=== PATIENT | male | born 1955 | race Caucasian/White ===

== ENCOUNTER 2018-04-10 18:58 | Emergency (ER) | payer MEDICAID ==
--- NOTE | 2018-04-10 19:24 | EDPHY ---
H & P Stated Complaint: Homeless and cold and hasn't slept in 40hrs Time Seen by Provider: 04/10/18 19:13 HPI/ROS: CHIEF COMPLAINT: Concerned about TB HISTORY OF PRESENT ILLNESS: 62-year-old male presents with a concern about tuberculosis. He went to the homeless long-term this evening and they asked for him to have a PPD placed. He noticed that multiple people were coughing in the long-term and became concerned that he was being exposed to tuberculosis if he entered the long-term. He left the long-term and became quite worried about exposure to tuberculosis. No cough, hemoptysis or fever. REVIEW OF SYSTEMS: complete 10 point ROS reviewed and is negative except for the noted elements in the HPI - Personal History Current Tetanus/Diphtheria Vaccine: Yes Current Tetanus Diphtheria and Acellular Pertussis (TDAP): Yes - Medical/Surgical History Hx Asthma: No Hx Chronic Respiratory Disease: No Hx Diabetes: No Hx Cardiac Disease: No Hx Renal Disease: No Hx Cirrhosis: No Hx Alcoholism: No Hx HIV/AIDS: No Hx Splenectomy or Spleen Trauma: No Other PMH: appy, tonsillectomy, cancer on nose removed - Social History Smoking Status: Current some day smoker Alcohol Use: Sober Drug Use: None - Physical Exam Exam: General Appearance: Alert, pleasant, talkative Eyes: Pupils equal and round, no conjunctival pallor or injection ENT, Mouth: Mucous membranes moist Neck: Normal inspection Respiratory: Lungs are clear to auscultation, no wheezing Cardiovascular: Regular rate and rhythm Gastrointestinal: Abdomen is soft and nontender Neurological: A&O, nonfocal, normal gait Skin: Warm and dry, no rash Extremities: Normal inspection Psychiatric: Tangential thought process, mild paranoia Constitutional: Initial Vital Signs Temperature (C) 37.3 C 04/10/18 19:07 Heart Rate 85 04/10/18 19:07 Respiratory Rate 16 04/10/18 19:07 Blood Pressure 160/94 H 04/10/18 19:07 O2 Sat (%) 98 04/10/18 19:07 O2 Delivery Mode Room Air Allergies/Adverse Reactions: No Known Allergies Allergy (Unverified 04/10/18 19:09) Home Medications: Medication Instructions Recorded NK [No Known Home Meds] 04/10/18 Medical Decision Making - Diagnostics EKG Interpretation: EKG interpreted by me reveals normal sinus rhythm, rate 73, early repolarization , borderline prolonged QT interval. Interpretation: Borderline EKG. Imaging Results: CXR: NAD Imaging: I viewed and interpreted images myself ED Course/Re-evaluation: This pt presents with tangential thought process and paranoia. He is not suicidal or homocidal and does not meet criteria for MH hold. I suspect this is his baseline mental status. I tried to reassure him about the safety of the long-term. However, he remains concerned and will continue to sleep outside. Informed about [facility] walk-in clinic. In regards to his presenting complaint, he denied chest pain and respiratory sx during my evaluation. Differential Diagnosis: includes though not limited to acute psychosis, overdose, suicidal ideation, acute cardiopulm disease - Data Points Laboratory Results: Laboratory Results 04/10/18 19:15 04/10/18 19:15 Point of Care Test Results: Chemistry 04/10/18 19:17 POC Troponin I 0.02 ng/mL ng/mL (0.00-0.08) Departure - Departure Disposition: Home, Routine, Self-Care Clinical Impression: Concern about pulmonary tuberculosis without diagnosis Condition: Good Instructions: Additional Information Additional Instructions: Return with any concerns. The [facility] has walk-in appointments for the homeless at the following days/locations. No appointment is needed. Monday 8-10 am @ [facility] 11 AM-1 PM @ [facility] Monday 8-10:30 AM @ [facility] Monday 8-10 AM @ [facility] 2-4 PM @ [facility] Monday 8-10 AM @ [facility] Referrals: [facility],. [Clinic] - As per Instructions
[2018-04-10 19:28] LABS: PLATELET COUNT 354 10^3/uL (150-400)
--- NOTE | 2018-04-10 19:36 | CPEKG ---
Test Reason : OPEN Blood Pressure : / mmHG Vent. Rate : 073 BPM Atrial Rate : 073 BPM P-R Int : 148 ms QRS Dur : 114 ms QT Int : 437 ms P-R-T Axes : 061 -10 039 degrees QTc Int : 482 ms Sinus rhythm Minimal ST elevation, anterior leads Borderline prolonged QT interval Confirmed by Abi Balderas ([id number]) on 04/10/2018 7:36:16 PM Referred By: Confirmed By:Abi Balderas
[2018-04-10 20:07] VITALS: BP 145/92
== END 2018-04-10 20:07 | disposition home or self-care (01) ==
DX: Z03.89 Encounter for observation for other suspected diseases and conditions ruled out (principal); F17.200 Nicotine dependence, unspecified, uncomplicated; Z59.0 Homelessness
CPT/HCPCS: 84484-PO

== ENCOUNTER 2018-08-21 20:34 | Emergency (ER) | payer MEDICAID ==
--- NOTE | 2018-08-21 21:07 | EDPHY ---
H & P Smoking Status: Current some day smoker Time Seen by Provider: 08/21/18 20:47 HPI/ROS: CHIEF COMPLAINT: "I do not want to live" HISTORY OF PRESENT ILLNESS: The patient is a 62-year-old male who is homeless. He states that he no longer wants to live. He is tired of being on the street. "I am just done." Patient states that his plan is to not eat or drink anything." I will meet my maker in 7 days, peacefully, like a gentleman." Patient denies any recent illness or trauma. Patient states currently taking medication for a toe fungus. REVIEW OF SYSTEMS: 10 systems were reveiwed and are negative with the exception of the elements mentioned in the history of present illness. (Angie Guerrero) Past Medical/Surgical History: Includes appendectomy, tonsillectomy, skin cancer Social history: The patient is homeless. He smokes cigarettes. Positive THC. Denies alcohol. (Angie Guerrero) Physical Exam: Vitals noted GENERAL: Well-appearing, in no acute distress, alert. HEENT: Eyes normal to inspection, normal pharynx, no signs of dehydration. NECK: Normal, supple. RESPIRATORY: Clear to auscultation bilaterally, no rales, rhonchi or wheezing. CVS: Regular rate and rhythm, no rubs, murmurs, or gallops. ABDOMEN: Soft, nontender, nondistended, no organomegaly. BACK: Normal to inspection, no CVA tenderness. SKIN: Normal color, no rash, warm, dry. No pallor. EXTREMITIES: No pedal edema, no calf tenderness, no Homans sign or cords, no joint swelling. NEURO/PSYCH: Alert and oriented, normal mood and affect, normal motor sensory exam. No obvious cranial nerve deficit. (Angie Guerrero) Constitutional: Initial Vital Signs Temperature (C) 36.9 C 08/21/18 20:40 Heart Rate 81 08/21/18 20:40 Respiratory Rate 20 08/21/18 20:40 Blood Pressure 149/80 H 08/21/18 20:40 O2 Sat (%) 94 08/21/18 20:40 O2 Delivery Mode Room Air Allergies/Adverse Reactions: No Known Allergies Allergy (Unverified 08/21/18 20:39) Home Medications: Medication Instructions Recorded NK [No Known Home Meds] 04/10/18 Medical Decision Making ED Course/Re-evaluation: In the emergency department I discussed possible etiologies with the patient. I answered his questions. He consented to laboratory studies and psychiatric evaluation. Patient was placed on a mental health hold. Due the patient's skin lesions he was given permethrin cream and a shower. Patient was given new clothes. CBC chemistry unremarkable. Tox screen was positive for THC. Alcohol is negative. Aspirin and Tylenol are negative. 2300: Patient is signed out to Dr. Sexton at change of shift. Patient is awaiting evaluation by Psychiatric Services. (Angie Guerreor) Differential Diagnosis: My differential includes but is not limited to suicidal ideation, electrolyte abnormality, sugar abnormality, drug abuse (Angie Guerrero) Other Provider: [address] Guerrero pending mental health evaluation. [address] patient signed out to Dr. Bergman pending mental health evaluation. No issues during my care of this patient overnight. (Shaun Sexton) 645: Care assumed from Darshan with plan for mental health evaluation; on a hold. 1234: evaluation by [facility], recommendation of Linnea and Dr. Aguirre is to vacated the mental health hold and discharge the patient. Does not currently meet criteria for 72 hr mental health hold. (Nuno Bergman) - Data Points Laboratory Results: Laboratory Results 08/21/18 21:10 08/21/18 21:10 Medications Given: Discontinued Medications Permethrin (Elimite 5%) 1 lamar TP EDNOW ONE Stop: 08/21/18 21:32 Last Admin: 08/21/18 22:51 Dose: 1 lamar Departure - Departure Disposition: Home, Routine, Self-Care Clinical Impression: Skin rash, Depression Condition: Good Instructions: Acute Rash (ED), Suicide Prevention (ED) Referrals: [facility],. [Clinic] - As per Instructions
[2018-08-21 21:20] LABS: PLATELET COUNT 327 10^3/uL (150-400)
[2018-08-21] MEDS ORDERED: PERMETHRIN 5% 60 GM CREAM TP ONE (21:31)
[2018-08-22 07:37] VITALS: BP 134/80
--- NOTE | 2018-08-22 13:37 | ASMTTCLDSP ---
[facility] Discharge Disposition Disposition: Answers: Discharge If Answers: Yes DISCHARGED: Patient/family given suicide hotline info & SAMHSA brochure? Disposition Notes: Notes: Pt stated commitment or ability to keep self safe, denied thoughts of self harm or harm to others. Pt expressed a desire to f/u with no services since he does not believe he is in need of any mental health care. Discharge Concerns/Recommendations: Notes: Pt was given local hotline information and SAMHSA brochure After an Attempt and encouraged to follow up with [facility] and [facility]. Pt reported he is familiar with [facility]. Was patient given the Answers: Not applicable Inpatient Behavioral Health Prohibited Belongings List while in the ED? Psychiatrist vacating M1 Dr Nuno Bergman, ED Physician Hold: Date and time M1 hold 08/22/2018 12:30 PM vacated (time format is hh:mm): Type of Hold: Answers: M1/72-hour Hold Hold initiated by: Answers: ED Physician Date Signed: 08/22/2018 01:36 PM Electronically Signed By:Linnea Licea
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
== END 2018-08-22 13:02 | disposition home or self-care (01) ==
DX: R45.851 Suicidal ideations (principal); R21 Rash and other nonspecific skin eruption; F32.9 Major depressive disorder, single episode, unspecified; Z59.0 Homelessness
CPT/HCPCS: 80305; G0480